=== PATIENT | male | born 1995 | race American Indian/Alaskan Native ===

== ENCOUNTER 2017-09-14 16:56 | Emergency (ER) | payer OTHER ==
[~2017-09-14] VITALS: Ht 180.3 cm; Wt 72.6 kg
[~2017-09-14 16:56] MED LIST: EMVERM100 MG PO; IBUPROFEN600 MG PO; NORCO 5-325 TA1 EACH PO; OXYCODONE HCL5 MG PO; ZOFRAN ODT4 MG PO; ZOFRAN ODT4 MG SL; ZOFRAN ODT8 MG PO
== END 2017-09-14 20:42 | disposition home or self-care (01) ==
LOC: ED 16:56
DX: J40 Bronchitis, not specified as acute or chronic (principal)
CPT/HCPCS: 71020; 80053; 81001; 85025; 99284

== ENCOUNTER 2018-12-07 12:22 | Emergency (ER) | payer OTHER ==
[~2018-12-07] VITALS: Ht 180.3 cm; Wt 81.7 kg
== END 2018-12-07 12:38 | disposition home or self-care (01) ==
LOC: ED 12:22
DX: R06.02 Shortness of breath (principal)

== ENCOUNTER 2018-12-14 14:50 | Emergency (ER) | payer OTHER ==
[~2018-12-14] VITALS: Ht 180.3 cm; Wt 81.7 kg
--- OUTSIDE RECORDS SUMMARY | ~2018-12-14 | XMS | Clinical Summary ---
Demographics + + + | Address | [address] | | | [place] [address] | + + + | Home Phone | | + + + | Preferred Language | Unknown | + + + | Marital Status | Single | + + + | Spiritism Affiliation | Unknown | + + + | Race | Unknown | + + + | Ethnic Group | Unknown | + + + Author + + + | Author | [facility] | + + + | Organization | [facility] | + + + | Address | Unknown | + + + | Phone | Unavailable | + + + Support + + +---------+ + | Name | Relationship | Address | Phone | + + +---------+ + | Virgen De La Paz | ECON | Unknown | | + + +---------+ + | Melani Duffy | ECON | Unknown | | + + +---------+ + Care Team Providers + +------+ + | Care Manager Of Broadcast Content Name | Role | Phone | + +------+ + | Serge Melendez | PP | | + +------+ + Allergies No Known Allergies Current Medications No known medications Active Problems + + + | Problem | Noted Date | + + + | SDH (subdural hematoma) | 04/04/2016 | + + + Immunizations + + + + | Name | Dates Previously Given | Next Due | + + + + | Pneumococcal | 04/04/2016 | | | Polysaccharide | | | | 23-valent | | | + + + + Social History + +-------+ +--------+------+ | Tobacco Use | Types | Packs/Day | Years | Date | | | | | Used | | + +-------+ +--------+------+ | Current Some Day | | | | | | Smoker | | | | | + +-------+ +--------+------+ + + | Tobacco Cessation: Ready to Quit: No; Counseling Given: Yes | + + + + + | Sex Assigned at | Date Recorded | | | | + + + | Not on file | | + + + Last Filed Vital Signs + + + + | Vital Sign | Reading | Time Taken | + + + + | Blood Pressure | 117/89 | 04/06/2016 8:26 AM PDT | + + + + | Pulse | 64 | 04/06/2016 8:26 AM PDT | + + + + | Temperature | 36.7 C (98.1 F) | 04/06/2016 8:26 AM PDT | + + + + | Respiratory Rate | 16 | 04/06/2016 8:26 AM PDT | + + + + | Oxygen Saturation | 97% | 04/06/2016 8:26 AM PDT | + + + + | Inhaled Oxygen | - | - | | Concentration | | | + + + + | Weight | 65.7 kg (144 lb 13.5 | 04/03/2016 11:00 PM PDT | | | oz) | | + + + + | Height | 180.3 cm (5' 11") | 04/03/2016 11:00 PM PDT | + + + + | Body Mass Index | 20.2 | 04/03/2016 11:00 PM PDT | + + + + Plan of Treatment + + + + + | Health Maintenance | Due Date | Last Done | Comments | + + + + + | Vaccine: | | | | | Dtap/Tdap/Td (1 - | 6 | | | | Tdap) | | | | + + + + + | Vaccine: Influenza | | | | | (#1) | 8 | | | + + + + + | Vaccine: | Completed | 04/04/2016 | | | Pneumococcal 19-64 | | | | | (PPSV23 only) Medium | | | | | Risk | | | | + + + + + Results Not on filefrom Last 3 Months Insurance + +--------+ +------+-------+ + | Payer | Benefi | Subscriber | Type | Phone | Address | | | t Plan | ID | | | | | | / | | | | | | | Group | | | | | + +--------+ +------+-------+ + | MEDICAID | MEDICA | [id number] | | | [address] | | | ID | | | | [place], [place] | | | [place] | | | | [phone] | + +--------+ +------+-------+ + | [employer] [facility] | YELLOW | [id number] | | | | | PLANS | [place] | | | | | + +--------+ +------+-------+ + + +--------+ +--------+ + + | Guarantor Name | Accoun | Relation to | Date | Phone | Billing Address | | | t Type | Patient | of | | | | | | | | | | + +--------+ +--------+ + + | EVANGELINA ECHAVARRIA | Person | Self [birth year] Home: | [address] | | S | [address] | | 1995 | [phone] [place] [address] | | | tuyet | | [phone] | | + +--------+ +--------+ + +
--- OUTSIDE RECORDS SUMMARY | 2018-12-14 14:52 | XMS ---
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 Natasha has no Care Guidelines for this patient. Estephania VISIT COUNT (12 MO.) [address] [facility] [place] [facility] TOTAL 2 NOTE: Visits indicate total known visits. ED/C VISIT TRACKING (12 MO.) 12/14/2018 14:[address] [facility] [place] TYPE: Emergency COMPLAINT: - VOMITING,DIZZINESS 12/07/2018 12:[address] [facility] [place] TYPE: Emergency COMPLAINT: - SHORTNESS OF BREATH DIAGNOSES: - Shortness of breath INPATIENT VISIT TRACKING (12 MO.) No inpatient visits to display in this time frame [id number]
[2018-12-14] MEDS ORDERED: OMEPRAZOLE40 MG PO (16:49)
== END 2018-12-14 17:09 | disposition home or self-care (01) ==
LOC: ED 14:50
DX: J40 Bronchitis, not specified as acute or chronic (principal); K21.9 Gastro-esophageal reflux disease without esophagitis; F17.200 Nicotine dependence, unspecified, uncomplicated
CPT/HCPCS: 80053; 84443; 85025; 99283

== ENCOUNTER 2019-03-31 14:13 | Emergency (ER) | payer OTHER ==
[~2019-03-31] VITALS: Ht 180.3 cm; Wt 72.6 kg
[~2019-03-31 14:13] MED LIST changes: +OMEPRAZOLE40 MG PO
--- NOTE | 2019-03-31 15:18 | EKG ---
[facility] [address] [place], [place] [address] Signed Normal sinus rhythm with sinus arrhythmia Rightward axis Borderline ECG No previous ECGs available Confirmed by RISHI HUNTER DO ([id number]) on 03/31/2019 3:18:33 PM Electronically Signed By: RISHI HUNTER DO 03/31/19 1518 PATIENT NAME: VERONICA MADERAEVANGELINA KASH Electrocardiogram DATE OF : [birth year] PHYSICIAN: RISHI HUNTER DO REPORT #: [id number] REPORT IS CONFIDENTIAL AND NOT TO BE RELEASED WITHOUT AUTHORIZATION
== END 2019-03-31 16:51 | disposition home or self-care (01) ==
LOC: ED 14:13
DX: R00.2 Palpitations (principal)
CPT/HCPCS: 71045; 80053; 83735; 84439; 84443; 85025; 93005; 93010; 93225; 93226; 93227; 96360; 99285-25; J7030

== ENCOUNTER 2020-10-06 17:18 | Emergency (ER) | payer OTHER ==
[~2020-10-06] VITALS: Ht 180.3 cm; Wt 72.6 kg
[2020-10-06] MEDS ORDERED: KEFLEX500 MG PO (18:07)
== END 2020-10-06 18:28 | disposition home or self-care (01) ==
LOC: ED 17:18
DX: L03.032 Cellulitis of left toe (principal)
CPT/HCPCS: 11730; 99283-25

== ENCOUNTER 2022-03-14 09:28 | Emergency (ER) | payer OTHER ==
[~2022-03-14] VITALS: Ht 182.9 cm; Wt 77.1 kg
[~2022-03-14 09:28] MED LIST changes: +KEFLEX500 MG PO
[2022-03-14] MEDS ORDERED: AMOX TR-K CLV1 EAC1 PO (10:28)
== END 2022-03-14 11:45 | disposition home or self-care (01) ==
LOC: ED 09:28
DX: S61.451A Open bite of right hand, initial encounter (principal); W54.0XXA Bitten by dog, initial encounter
CPT/HCPCS: 73130; 90715; A9270

== ENCOUNTER 2025-08-18 14:41 | Emergency (ER) | payer OTHER ==
[~2025-08-18] VITALS: Ht 180.3 cm; Wt 88.4 kg
[~2025-08-18 14:41] MED LIST changes: +AMOX TR-K CLV1 EAC1 PO
--- OUTSIDE RECORDS SUMMARY | 2025-08-18 14:47 | XMS ---
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 PHONE: [phone] Natasha has no Care Guidelines for this patient. Estephania VISIT COUNT (12 MO.) 1 [facility] TOTAL 1 NOTE: Visits indicate total known visits. ED/UCC VISIT TRACKING (12 MO.) 08/18/2025 14:41 [facility] [place] TYPE: Emergency COMPLAINT: - WEAKNESS INPATIENT VISIT TRACKING (12 MO.) No inpatient visits to display in this time frame [id number]
[2025-08-18 15:37] LABS: BASOPHILS 0.4 % (0.2-1.2); EOSINOPHILS 2.2 % (0.8-7.0); LYMPHOCYTES 34.6 % (21.8-53.1); MCH 29.1 PG (25.7-32.2); MCHC 34.6 g/dL (32.3-36.5); MCV 84.0 fL (79.0-92.2); MONOCYTES 7.3 % (5.3-12.2); NEUTROPHILS 55.1 % (34.0-67.9); RBC 5.26 M/uL (4.63-6.08)
[2025-08-18 15:54] LABS: ALT (SGPT) 23.0 U/L (14-59); AST (SGOT) 9.0 U/L (15-37); GLOMERULAR FILTRATION RATE,EST 124.0 mL/min (>60); PROTEIN, TOTAL 7.6 g/dL (6.4-8.2); UREA NITROGEN 12.0 mg/dL (7-18)
[2025-08-18 16:28] LABS: CORONAVIRUS COVID-19 AG NEGATIVE (NEGATIVE)
[2025-08-18 18:55] VITALS: BP 113/82
--- NOTE | 2025-08-18 19:21 | EKG ---
[facility] [address] [place] [address] Signed Sinus bradycardia Otherwise normal ECG When compared with ECG of 31-MAR-2019 14:18, Vent. rate has decreased BY 39 BPM Questionable change in QRS axis Confirmed by Melissa Tabor MD () on 08/18/2025 7:20:57 PM Electronically Signed By: MELISSA TABOR MD 08/18/251920 PATIENT NAME: EVANGELINA ECHAVARRIA Electrocardiogram DATE OF : [birth year] PHYSICIAN: MELISSA TABOR MD REPORT #: [id number] REPORT IS CONFIDENTIAL AND NOT TO BE RELEASED WITHOUT AUTHORIZATION
== END 2025-08-18 18:55 | disposition left against medical advice (07) ==
LOC: ED 14:41
PROVIDERS: Emergency Medicine
DX: R53.1 Weakness (principal); R12 Heartburn; Z53.21 Procedure and treatment not carried out due to patient leaving prior to being seen by health care provider
CPT/HCPCS: 36415; 80053; 83735; 84484; 85025; 93005; 93010